=== PATIENT | female | born 1960 | race Hispanic/Latino ===

== ENCOUNTER 2017-09-02 11:31 | Outpatient (CLI) | payer SELFPAY | END 2017-09-02 11:32 | disposition home or self-care (01) | LOC: BICRAD 11:31 | DX: S89.91XA Unspecified injury of right lower leg, initial encounter (principal) ==

== ENCOUNTER 2018-02-19 01:53 | Emergency (ER) | payer SELFPAY ==
[2018-02-19] MEDS ORDERED: Lisinopril 10 MG TAB PO SCH (09:45)
[2018-02-19] MEDS ORDERED: Lisinopril 10 MG TAB ONE (11:16)
== END 2018-02-19 20:25 ==
LOC: ERS 01:53
DX: F32.9 Major depressive disorder, single episode, unspecified (principal); I10 Essential (primary) hypertension; F41.9 Anxiety disorder, unspecified; Z79.899 Other long term (current) drug therapy
CPT/HCPCS: 99285

== ENCOUNTER 2021-03-19 11:23 | Inpatient (IN) | payer SELFPAY ==
[~2021-03-19 11:23] MED LIST: Iopamidol-370 76% 500 ML 1 ML ONE
[2021-03-19] MEDS ORDERED: Sodium Chloride 0.9% 100 ML ONE (12:11)
[2021-03-19] MEDS ORDERED: cefTRIAXone\\ROCEPHIN 2 GM VIAL ONE (12:11)
[2021-03-19] MEDS ORDERED: Azithromycin 500 MG VIAL ONE (12:11)
[2021-03-19] MEDS ORDERED: Lisinopril 10 MG TAB ONE (12:46)
[2021-03-19 15:48] VITALS: BMI 28.1
[2021-03-19] MEDS: Famotidine 20 MG TAB PO SCH (22:20)
[2021-03-19] MEDS: Benzonatate 100 MG CAP PO PRN (22:20)
[2021-03-19] MEDS: guaiFENesin ER 600 MG TAB PO SCH (22:20)
[2021-03-19] MEDS: Enoxaparin Sodium 40 MG/0.4 ML SYRINGE SC SCH (22:20)
[2021-03-19] MEDS: Cholecalciferol 1,000 UNITS (25 MCG) TAB PO SCH (22:20)
[2021-03-20] MEDS: Zinc Sulfate 220 MG CAP PO SCH (07:49)
[2021-03-20] MEDS: Enoxaparin Sodium 40 MG/0.4 ML SYRINGE SC SCH ×2 (07:49→21:52)
[2021-03-20] MEDS: Ascorbic Acid 500 mg Chewable Tablet PO SCH (07:49)
[2021-03-20] MEDS: guaiFENesin ER 600 MG TAB PO SCH ×2 (07:49→21:52)
[2021-03-20] MEDS: Famotidine 20 MG TAB PO SCH (07:50)
[2021-03-20] MEDS: Dexamethasone 4 MG TAB PO SCH (07:50)
[2021-03-20] MEDS ORDERED: Azithromycin 250 MG TAB PO SCH (09:00)
[2021-03-20] MEDS: Ondansetron PF 4 MG/2 ML Vial IVP PRN (09:55)
[2021-03-20] MEDS ORDERED: Loperamide HCl 1 MG/7.5 ML UDCUP PO PRN (10:38)
[2021-03-20 11:17] LABS: ALT (SGPT) 37 U/L (8-55); AST (SGOT) 16 U/L (5-34); Albumin 3.3 g/dL (3.5-5.0); Alkaline Phosphatase 71 U/L (40-110); Anion Gap 15 mmol/L (10-20); BUN (Urea Nitrogen) 27 mg/dL (9.8-20.1); Bilirubin, Total 0.5 mg/dL (0.2-1.2); Calc. Creatinine Clearance 106 mL/min (70-130); Calcium 9.2 mg/dL (7.8-10.44); Carbon Dioxide 22 mmol/L (22-29); Chloride 108 mmol/L (98-107); Glucose 136 mg/dL (70-105); Protein, Total 7.3 g/dL (6.0-8.3); Sodium 141 mmol/L (136-145)
[2021-03-20 11:20] LABS: Hemoglobin 13.9 g/dL (12.0-16.0); Lymphocytes 5 % (21-51); MDiff Complete? YES; Mean Corpuscular HGB CONC 33.8 g/dL (32.0-36.0); Mean Corpuscular Hemoglobin 30.8 pg (27.0-31.0); Mean Platelet Volume 8.3 fL (7.4-10.4); Monocytes 9 % (0-10); Neutrophil 86 % (42-75); Platelet Count 334 thou/uL (130-400); Platelet Morphology Comment Appears Adequate; RBC Distribution Width 11.3 % (11.5-14.5); RBC Morphology Normal; Red Blood Cell (RBC) Count 4.52 mill/uL (4.20-5.40); White Blood Cell (WBC) Count 19.6 thou/uL (4.8-10.8)
[2021-03-20] MEDS: cefTRIAXone\\ROCEPHIN 2 GM in Sodium Chloride 0.9% 100 ML IVPB SCH (13:56)
[2021-03-20] MEDS: Azithromycin 500 MG in Sodium Chloride 0.9% 250 ML 250 ML IVPB SCH (16:07)
[2021-03-20] MEDS: Benzonatate 100 MG CAP PO PRN (21:52)
[2021-03-20] MEDS: Cholecalciferol 1,000 UNITS (25 MCG) TAB PO SCH (21:52)
[2021-03-21] MEDS: Benzonatate 100 MG CAP PO PRN ×4 (02:39→21:24)
[2021-03-21] MEDS: Albuterol 200 PUFF (6.7GM INHALER) INH PRN ×2 (02:39→12:00)
[2021-03-21 06:23] LABS: ALT (SGPT) 29 U/L (8-55); AST (SGOT) 18 U/L (5-34); Albumin 3.1 g/dL (3.5-5.0); Alkaline Phosphatase 67 U/L (40-110); Anion Gap 17 mmol/L (10-20); BUN (Urea Nitrogen) 24 mg/dL (9.8-20.1); Bilirubin, Total 0.5 mg/dL (0.2-1.2); CRP (Inflammatory) 4.15 mg/dL (= or < 0.5); Calc. Creatinine Clearance 106 mL/min (70-130); Carbon Dioxide 18 mmol/L (22-29); Chloride 109 mmol/L (98-107); Globulin 4.1 g/dL (2.4-3.5); Glucose 112 mg/dL (70-105); Potassium 4.9 mmol/L (3.5-5.1); Protein, Total 7.2 g/dL (6.0-8.3); Sodium 139 mmol/L (136-145)
[2021-03-21 07:00] LABS: Band 18 % (5-11); Hemoglobin 15.2 g/dL (12.0-16.0); Lymphocytes 9 % (21-51); MDiff Complete? YES; Mean Corpuscular HGB CONC 34.7 g/dL (32.0-36.0); Mean Corpuscular Volume 92.1 fL (78.0-98.0); Mean Platelet Volume 8.9 fL (7.4-10.4); Monocytes 6 % (0-10); Neutrophil 67 % (42-75); Platelet Count 259 thou/uL (130-400); RBC Distribution Width 11.3 % (11.5-14.5); Red Blood Cell (RBC) Count 4.74 mill/uL (4.20-5.40); White Blood Cell (WBC) Count 15.8 thou/uL (4.8-10.8)
[2021-03-21] MEDS: Dexamethasone 4 MG TAB PO SCH (08:14)
[2021-03-21] MEDS: Ascorbic Acid 500 mg Chewable Tablet PO SCH (08:15)
[2021-03-21] MEDS: Lisinopril 10 MG TAB PO SCH (08:15)
[2021-03-21] MEDS: guaiFENesin ER 600 MG TAB PO SCH ×2 (08:15→21:24)
[2021-03-21] MEDS: Zinc Sulfate 220 MG CAP PO SCH (08:15)
[2021-03-21] MEDS: Enoxaparin Sodium 40 MG/0.4 ML SYRINGE SC SCH ×2 (08:15→21:25)
[2021-03-21] MEDS: Acetaminophen 325 MG TAB PO PRN ×2 (08:19→21:30)
[2021-03-21] MEDS: cefTRIAXone\\ROCEPHIN 2 GM in Sodium Chloride 0.9% 100 ML IVPB SCH (13:11)
[2021-03-21] MEDS: Azithromycin 500 MG in Sodium Chloride 0.9% 250 ML 250 ML IVPB SCH (15:15)
[2021-03-21] MEDS: Cholecalciferol 1,000 UNITS (25 MCG) TAB PO SCH (21:24)
[2021-03-22 06:11] LABS: Hemoglobin 13.2 g/dL (12.0-16.0); Mean Corpuscular HGB CONC 34.1 g/dL (32.0-36.0); Mean Corpuscular Hemoglobin 31.3 pg (27.0-31.0); Mean Corpuscular Volume 91.7 fL (78.0-98.0); Mean Platelet Volume 8.6 fL (7.4-10.4); Platelet Count 340 thou/uL (130-400); RBC Distribution Width 11.2 % (11.5-14.5); Red Blood Cell (RBC) Count 4.22 mill/uL (4.20-5.40); White Blood Cell (WBC) Count 17.6 thou/uL (4.8-10.8)
[2021-03-22 06:30] LABS: ALT (SGPT) 26 U/L (8-55); AST (SGOT) 11 U/L (5-34); Albumin 2.9 g/dL (3.5-5.0); Alkaline Phosphatase 64 U/L (40-110); Anion Gap 12 mmol/L (10-20); BUN (Urea Nitrogen) 26 mg/dL (9.8-20.1); Bilirubin, Total 0.4 mg/dL (0.2-1.2); CRP (Inflammatory) 3.44 mg/dL (= or < 0.5); Calc. Creatinine Clearance 98 mL/min (70-130); Calcium 8.9 mg/dL (7.8-10.44); Carbon Dioxide 26 mmol/L (22-29); Chloride 108 mmol/L (98-107); Globulin 3.7 g/dL (2.4-3.5); Glucose 119 mg/dL (70-105); Potassium 4.2 mmol/L (3.5-5.1); Protein, Total 6.6 g/dL (6.0-8.3); Sodium 142 mmol/L (136-145)
[2021-03-22 06:56] LABS: Band 2 % (5-11); Lymphocytes 14 % (21-51); MDiff Complete? YES; Monocytes 8 % (0-10); Neutrophil 76 % (42-75)
[2021-03-22] MEDS: Enoxaparin Sodium 40 MG/0.4 ML SYRINGE SC SCH ×2 (07:38→20:46)
[2021-03-22] MEDS: Dexamethasone 4 MG TAB PO SCH (07:38)
[2021-03-22] MEDS: Acetaminophen 325 MG TAB PO PRN (07:40)
[2021-03-22] MEDS: guaiFENesin ER 600 MG TAB PO SCH ×2 (07:40→20:46)
[2021-03-22] MEDS: Ascorbic Acid 500 mg Chewable Tablet PO SCH (07:40)
[2021-03-22] MEDS: Benzonatate 100 MG CAP PO PRN ×3 (07:40→20:47)
[2021-03-22] MEDS: Lisinopril 10 MG TAB PO SCH (07:41)
[2021-03-22] MEDS: Zinc Sulfate 220 MG CAP PO SCH (07:41)
[2021-03-22] MEDS: Albuterol 200 PUFF (6.7GM INHALER) INH PRN ×2 (15:07→21:07)
[2021-03-22] MEDS: ALPRAZolam 0.25 MG TAB PO PRN ×2 (15:08→21:06)
[2021-03-22] MEDS: Cholecalciferol 1,000 UNITS (25 MCG) TAB PO SCH (20:46)
[2021-03-23] MEDS: Acetaminophen 325 MG TAB PO PRN ×3 (00:09→20:44)
[2021-03-23 06:36] LABS: Hemoglobin 13.3 g/dL (12.0-16.0); Mean Corpuscular HGB CONC 33.4 g/dL (32.0-36.0); Mean Corpuscular Hemoglobin 30.6 pg (27.0-31.0); Mean Corpuscular Volume 91.4 fL (78.0-98.0); Mean Platelet Volume 8.4 fL (7.4-10.4); Platelet Count 400 thou/uL (130-400); RBC Distribution Width 11.1 % (11.5-14.5); Red Blood Cell (RBC) Count 4.35 mill/uL (4.20-5.40); White Blood Cell (WBC) Count 16.6 thou/uL (4.8-10.8)
[2021-03-23 06:37] LABS: Band 1 % (5-11); Lymphocytes 17 % (21-51); MDiff Complete? YES; Metamyelocyte 1 % (0-0); Monocytes 5 % (0-10); Neutrophil 76 % (42-75); Platelet Morphology Comment Appears Adequate; RBC Morphology Normal
[2021-03-23 06:50] LABS: ALT (SGPT) 19 U/L (8-55); AST (SGOT) 8 U/L (5-34); Albumin 2.9 g/dL (3.5-5.0); Alkaline Phosphatase 64 U/L (40-110); Anion Gap 15 mmol/L (10-20); BUN (Urea Nitrogen) 28 mg/dL (9.8-20.1); Bilirubin, Total 0.4 mg/dL (0.2-1.2); CRP (Inflammatory) 2.73 mg/dL (= or < 0.5); Calc. Creatinine Clearance 96 mL/min (70-130); Calcium 8.9 mg/dL (7.8-10.44); Carbon Dioxide 21 mmol/L (22-29); Chloride 106 mmol/L (98-107); Globulin 3.6 g/dL (2.4-3.5); Glucose 127 mg/dL (70-105); Potassium 4.1 mmol/L (3.5-5.1); Protein, Total 6.5 g/dL (6.0-8.3); Sodium 138 mmol/L (136-145)
[2021-03-23] MEDS: Ascorbic Acid 500 mg Chewable Tablet PO SCH (08:31)
[2021-03-23] MEDS: Lisinopril 10 MG TAB PO SCH (08:31)
[2021-03-23] MEDS: Benzonatate 100 MG CAP PO PRN ×3 (08:31→20:43)
[2021-03-23] MEDS: Dexamethasone 4 MG TAB PO SCH (08:31)
[2021-03-23] MEDS: guaiFENesin ER 600 MG TAB PO SCH ×2 (08:31→20:43)
[2021-03-23] MEDS: Enoxaparin Sodium 40 MG/0.4 ML SYRINGE SC SCH ×2 (08:32→20:43)
[2021-03-23] MEDS: Zinc Sulfate 220 MG CAP PO SCH (08:32)
[2021-03-23] MEDS: Albuterol 200 PUFF (6.7GM INHALER) INH PRN ×2 (12:57→20:45)
[2021-03-23] MEDS: Cholecalciferol 1,000 UNITS (25 MCG) TAB PO SCH (20:43)
[2021-03-23] MEDS: ALPRAZolam 0.25 MG TAB PO PRN (23:31)
[2021-03-24] MEDS: Benzonatate 100 MG CAP PO PRN ×4 (05:13→21:11)
[2021-03-24] MEDS: Albuterol 200 PUFF (6.7GM INHALER) INH PRN ×2 (06:05→21:11)
[2021-03-24] MEDS: Enoxaparin Sodium 40 MG/0.4 ML SYRINGE SC SCH ×2 (08:19→21:05)
[2021-03-24] MEDS: Dexamethasone 4 MG TAB PO SCH (08:20)
[2021-03-24] MEDS: Zinc Sulfate 220 MG CAP PO SCH (08:20)
[2021-03-24] MEDS: guaiFENesin ER 600 MG TAB PO SCH ×2 (08:20→21:05)
[2021-03-24] MEDS: Lisinopril 10 MG TAB PO SCH (08:20)
[2021-03-24] MEDS: ALPRAZolam 0.25 MG TAB PO PRN ×3 (08:20→21:23)
[2021-03-24] MEDS: Ascorbic Acid 500 mg Chewable Tablet PO SCH (08:20)
[2021-03-24] MEDS: Cholecalciferol 1,000 UNITS (25 MCG) TAB PO SCH (21:05)
[2021-03-24] MEDS: Senokot S 8.6-50 MG TAB PO PRN (21:06)
[2021-03-24] MEDS: Acetaminophen 325 MG TAB PO PRN (21:23)
[2021-03-25] MEDS: Benzonatate 100 MG CAP PO PRN ×4 (04:50→21:30)
[2021-03-25] MEDS: Albuterol 200 PUFF (6.7GM INHALER) INH PRN ×2 (04:50→21:53)
[2021-03-25 06:36] LABS: Anion Gap 16 mmol/L (10-20); BUN (Urea Nitrogen) 26 mg/dL (9.8-20.1); CRP (Inflammatory) 0.85 mg/dL (= or < 0.5); Calc. Creatinine Clearance 97 mL/min (70-130); Calcium 8.7 mg/dL (7.8-10.44); Carbon Dioxide 21 mmol/L (22-29); Chloride 107 mmol/L (98-107); Glucose 141 mg/dL (70-105); Potassium 4.6 mmol/L (3.5-5.1); Sodium 139 mmol/L (136-145)
[2021-03-25 06:53] LABS: Band 1 % (5-11); Hemoglobin 13.4 g/dL (12.0-16.0); Lymphocytes 9 % (21-51); MDiff Complete? YES; Mean Corpuscular HGB CONC 35.1 g/dL (32.0-36.0); Mean Corpuscular Hemoglobin 32.1 pg (27.0-31.0); Mean Corpuscular Volume 91.6 fL (78.0-98.0); Mean Platelet Volume 8.6 fL (7.4-10.4); Monocytes 6 % (0-10); Myelocyte 1 % (0-0); Neutrophil 81 % (42-75); Platelet Count 372 thou/uL (130-400); Platelet Morphology Comment Appears Adequate; RBC Distribution Width 11.4 % (11.5-14.5); RBC Morphology Normal; Reactive Lymphocytes 2 % (0-10); Red Blood Cell (RBC) Count 4.18 mill/uL (4.20-5.40); White Blood Cell (WBC) Count 19.5 thou/uL (4.8-10.8)
[2021-03-25] MEDS: Enoxaparin Sodium 40 MG/0.4 ML SYRINGE SC SCH ×2 (07:39→21:29)
[2021-03-25] MEDS: Dexamethasone 4 MG TAB PO SCH (07:39)
[2021-03-25] MEDS: Ascorbic Acid 500 mg Chewable Tablet PO SCH (07:40)
[2021-03-25] MEDS: Lisinopril 10 MG TAB PO SCH (07:40)
[2021-03-25] MEDS: ALPRAZolam 0.25 MG TAB PO PRN ×3 (07:40→21:40)
[2021-03-25] MEDS: Zinc Sulfate 220 MG CAP PO SCH (07:40)
[2021-03-25] MEDS: guaiFENesin ER 600 MG TAB PO SCH ×2 (07:40→21:30)
[2021-03-25] MEDS: Ondansetron PF 4 MG/2 ML Vial IVP PRN (10:10)
[2021-03-25] MEDS: Senokot S 8.6-50 MG TAB PO PRN (21:29)
[2021-03-25] MEDS: Cholecalciferol 1,000 UNITS (25 MCG) TAB PO SCH (21:30)
[2021-03-25] MEDS: Acetaminophen 325 MG TAB PO PRN (21:30)
[2021-03-26] MEDS: Senokot S 8.6-50 MG TAB PO PRN (05:35)
[2021-03-26] MEDS: Benzonatate 100 MG CAP PO PRN (05:35)
[2021-03-26 06:30] LABS: #Eosinphils 0.1 thou/uL (0.0-0.7); #Lymphocytes 2.3 thou/uL (1.20-3.40); #Monocytes 1.2 thou/uL (0.11-0.59); #Neutrophils 16.2 thou/uL (1.40-6.50); %Basophils 0.2 % (0.0-1.0); %Eosinophils 0.4 % (0.0-10.0); %Lymphocytes 11.4 % (21.0-51.0); %Monocytes 6.2 % (0.0-10.0); %Neutrophils 81.9 % (42.0-75.0); Hemoglobin 13.3 g/dL (12.0-16.0); Mean Corpuscular HGB CONC 34.2 g/dL (32.0-36.0); Mean Corpuscular Hemoglobin 31.4 pg (27.0-31.0); Mean Corpuscular Volume 91.6 fL (78.0-98.0); Mean Platelet Volume 8.7 fL (7.4-10.4); Platelet Count 378 thou/uL (130-400); RBC Distribution Width 11.5 % (11.5-14.5); Red Blood Cell (RBC) Count 4.24 mill/uL (4.20-5.40); White Blood Cell (WBC) Count 19.8 thou/uL (4.8-10.8)
[2021-03-26 06:55] LABS: Anion Gap 12 mmol/L (10-20); BUN (Urea Nitrogen) 23 mg/dL (9.8-20.1); Calc. Creatinine Clearance 111 mL/min (70-130); Calcium 8.6 mg/dL (7.8-10.44); Carbon Dioxide 22 mmol/L (22-29); Chloride 106 mmol/L (98-107); Glucose 110 mg/dL (70-105); Potassium 4.3 mmol/L (3.5-5.1); Sodium 136 mmol/L (136-145)
[2021-03-26] MEDS: Dexamethasone 4 MG TAB PO SCH (08:41)
[2021-03-26] MEDS: guaiFENesin ER 600 MG TAB PO SCH ×2 (08:41→20:12)
[2021-03-26] MEDS: Zinc Sulfate 220 MG CAP PO SCH (08:41)
[2021-03-26] MEDS: Ascorbic Acid 500 mg Chewable Tablet PO SCH (08:42)
[2021-03-26] MEDS: Lisinopril 10 MG TAB PO SCH (08:42)
[2021-03-26] MEDS: Enoxaparin Sodium 40 MG/0.4 ML SYRINGE SC SCH ×2 (08:43→20:12)
[2021-03-26] MEDS: Cholecalciferol 1,000 UNITS (25 MCG) TAB PO SCH (20:12)
[2021-03-27] MEDS: Enoxaparin Sodium 40 MG/0.4 ML SYRINGE SC SCH ×2 (08:12→20:08)
[2021-03-27] MEDS: Dexamethasone 4 MG TAB PO SCH (08:13)
[2021-03-27] MEDS: Zinc Sulfate 220 MG CAP PO SCH (08:13)
[2021-03-27] MEDS: Lisinopril 10 MG TAB PO SCH (08:13)
[2021-03-27] MEDS: Ascorbic Acid 500 mg Chewable Tablet PO SCH (08:13)
[2021-03-27] MEDS: guaiFENesin ER 600 MG TAB PO SCH ×2 (08:19→20:07)
[2021-03-27] MEDS: Benzonatate 100 MG CAP PO PRN ×2 (11:32→20:07)
[2021-03-27] MEDS: Albuterol 200 PUFF (6.7GM INHALER) INH PRN (20:07)
[2021-03-27] MEDS: Cholecalciferol 1,000 UNITS (25 MCG) TAB PO SCH (20:07)
[2021-03-28] MEDS: Albuterol 200 PUFF (6.7GM INHALER) INH PRN (00:37)
[2021-03-28] MEDS: ALPRAZolam 0.25 MG TAB PO PRN (00:37)
[2021-03-28] MEDS: Benzonatate 100 MG CAP PO PRN (00:37)
[2021-03-28] MEDS: guaiFENesin ER 600 MG TAB PO SCH ×2 (08:07→21:36)
[2021-03-28] MEDS: Lisinopril 10 MG TAB PO SCH (08:07)
[2021-03-28] MEDS: Dexamethasone 4 MG TAB PO SCH (08:08)
[2021-03-28] MEDS: Enoxaparin Sodium 40 MG/0.4 ML SYRINGE SC SCH ×2 (08:08→21:36)
[2021-03-28] MEDS: Zinc Sulfate 220 MG CAP PO SCH (08:26)
[2021-03-28] MEDS: Ascorbic Acid 500 mg Chewable Tablet PO SCH (08:27)
[2021-03-28] MEDS: Cholecalciferol 1,000 UNITS (25 MCG) TAB PO SCH (21:36)
[2021-03-29 07:10] LABS: #Eosinphils 0.1 thou/uL (0.0-0.7); #Lymphocytes 2.4 thou/uL (1.20-3.40); #Monocytes 1.6 thou/uL (0.11-0.59); #Neutrophils 15.3 thou/uL (1.40-6.50); %Eosinophils 0.5 % (0.0-10.0); %Lymphocytes 12.4 % (21.0-51.0); %Monocytes 8.4 % (0.0-10.0); %Neutrophils 78.6 % (42.0-75.0); Hemoglobin 14.5 g/dL (12.0-16.0); Mean Corpuscular HGB CONC 33.8 g/dL (32.0-36.0); Mean Corpuscular Hemoglobin 31.2 pg (27.0-31.0); Mean Corpuscular Volume 92.4 fL (78.0-98.0); Platelet Count 278 thou/uL (130-400); Red Blood Cell (RBC) Count 4.65 mill/uL (4.20-5.40); White Blood Cell (WBC) Count 19.4 thou/uL (4.8-10.8)
[2021-03-29 07:38] LABS: Band 1 % (5-11); Lymphocytes 18 % (21-51); Metamyelocyte 1 % (0-0); Monocytes 5 % (0-10)
[2021-03-29 07:39] LABS: Hypersemented Neutrophil SLIGHT; Platelet Morphology Comment Appears Adequate; Polychromasia SLIGHT = 2-3 cells (100X) (0-2/hpf); Vacuoles SLIGHT
[2021-03-29 07:40] LABS: Neutrophil 75 % (42-75)
[2021-03-29 07:47] LABS: Anion Gap 15 mmol/L (10-20); BUN (Urea Nitrogen) 27 mg/dL (9.8-20.1); Calc. Creatinine Clearance 107 mL/min (70-130); Carbon Dioxide 22 mmol/L (22-29); Chloride 106 mmol/L (98-107); Glucose 110 mg/dL (70-105); Potassium 4.3 mmol/L (3.5-5.1); Sodium 139 mmol/L (136-145)
[2021-03-29] MEDS: guaiFENesin ER 600 MG TAB PO SCH ×2 (08:39→20:06)
[2021-03-29] MEDS: Dexamethasone 4 MG TAB PO SCH (08:39)
[2021-03-29] MEDS: Ascorbic Acid 500 mg Chewable Tablet PO SCH (08:40)
[2021-03-29] MEDS: Zinc Sulfate 220 MG CAP PO SCH (08:40)
[2021-03-29] MEDS: Lisinopril 10 MG TAB PO SCH (08:40)
[2021-03-29] MEDS: Enoxaparin Sodium 40 MG/0.4 ML SYRINGE SC SCH ×2 (08:40→20:06)
[2021-03-29] MEDS: Benzonatate 100 MG CAP PO PRN (08:40)
[2021-03-29] MEDS: Cholecalciferol 1,000 UNITS (25 MCG) TAB PO SCH (20:06)
[2021-03-30] MEDS: Dexamethasone 4 MG TAB PO SCH (08:23)
[2021-03-30] MEDS: Benzonatate 100 MG CAP PO PRN (08:23)
[2021-03-30] MEDS: guaiFENesin ER 600 MG TAB PO SCH ×2 (08:23→21:12)
[2021-03-30] MEDS: Enoxaparin Sodium 40 MG/0.4 ML SYRINGE SC SCH ×2 (08:24→21:12)
[2021-03-30] MEDS: Ascorbic Acid 500 mg Chewable Tablet PO SCH (08:24)
[2021-03-30] MEDS: Lisinopril 10 MG TAB PO SCH ×2 (08:24→09:45)
[2021-03-30] MEDS: Zinc Sulfate 220 MG CAP PO SCH (08:24)
[2021-03-30] MEDS: ALPRAZolam 0.25 MG TAB PO PRN (21:12)
[2021-03-30] MEDS: Cholecalciferol 1,000 UNITS (25 MCG) TAB PO SCH (21:12)
[2021-03-31] MEDS: Enoxaparin Sodium 40 MG/0.4 ML SYRINGE SC SCH ×2 (08:01→20:35)
[2021-03-31] MEDS: Lisinopril 10 MG TAB PO SCH (08:01)
[2021-03-31] MEDS: guaiFENesin ER 600 MG TAB PO SCH ×2 (08:01→20:34)
[2021-03-31] MEDS: Ascorbic Acid 500 mg Chewable Tablet PO SCH (08:01)
[2021-03-31] MEDS: Dexamethasone 4 MG TAB PO SCH (08:01)
[2021-03-31] MEDS: Zinc Sulfate 220 MG CAP PO SCH (08:01)
[2021-03-31] MEDS: Cholecalciferol 1,000 UNITS (25 MCG) TAB PO SCH (20:34)
[2021-03-31] MEDS: ALPRAZolam 0.25 MG TAB PO PRN (20:35)
[2021-04-01 07:37] LABS: Hemoglobin 13.5 g/dL (12.0-16.0); Mean Corpuscular HGB CONC 33.1 g/dL (32.0-36.0); Mean Corpuscular Hemoglobin 30.4 pg (27.0-31.0); Platelet Count 294 thou/uL (130-400); RBC Distribution Width 12.2 % (11.5-14.5); Red Blood Cell (RBC) Count 4.44 mill/uL (4.20-5.40)
[2021-04-01 07:42] LABS: Anion Gap 16 mmol/L (10-20); BUN (Urea Nitrogen) 22 mg/dL (9.8-20.1); Calc. Creatinine Clearance 111 mL/min (70-130); Calcium 8.7 mg/dL (7.8-10.44); Carbon Dioxide 22 mmol/L (22-29); Chloride 101 mmol/L (98-107); Glucose 146 mg/dL (70-105); Potassium 4.1 mmol/L (3.5-5.1); Sodium 135 mmol/L (136-145)
[2021-04-01] MEDS: Enoxaparin Sodium 40 MG/0.4 ML SYRINGE SC SCH ×2 (08:04→20:27)
[2021-04-01] MEDS: Lisinopril 10 MG TAB PO SCH (08:04)
[2021-04-01] MEDS: Zinc Sulfate 220 MG CAP PO SCH (08:04)
[2021-04-01] MEDS: Dexamethasone 4 MG TAB PO SCH (08:04)
[2021-04-01] MEDS: guaiFENesin ER 600 MG TAB PO SCH ×2 (08:05→20:27)
[2021-04-01] MEDS: Ascorbic Acid 500 mg Chewable Tablet PO SCH (08:05)
[2021-04-01 09:54] LABS: Band 7 % (5-11); Lymphocytes 12 % (21-51); MDiff Complete? YES; Mean Platelet Volume 9.2 fL (7.4-10.4); Metamyelocyte 3 % (0-0); Monocytes 9 % (0-10); Neutrophil 66 % (42-75); Reactive Lymphocytes 3 % (0-10); White Blood Cell (WBC) Count 20.2 thou/uL (4.8-10.8)
[2021-04-01] MEDS: Cholecalciferol 1,000 UNITS (25 MCG) TAB PO SCH (20:27)
[2021-04-02 07:23] VITALS: TEMP 97.9
[2021-04-02] MEDS: Lisinopril 10 MG TAB PO SCH (08:22)
[2021-04-02] MEDS: guaiFENesin ER 600 MG TAB PO SCH (08:22)
[2021-04-02] MEDS: Zinc Sulfate 220 MG CAP PO SCH (08:22)
[2021-04-02] MEDS: Dexamethasone 4 MG TAB PO SCH (08:22)
[2021-04-02] MEDS: Ascorbic Acid 500 mg Chewable Tablet PO SCH (08:22)
[2021-04-02] MEDS: Enoxaparin Sodium 40 MG/0.4 ML SYRINGE SC SCH (08:23)
[2021-04-02 10:55] VITALS: BP 154/96
== END 2021-04-02 16:52 | disposition home or self-care (01) | DRG 871 ==
LOC: ERS 11:23 → T4-A 12:43
PROVIDERS: ADMIT Internal Medicine; ATTEND Family Medicine
PROC: 5A0955A Assistance with Respiratory Ventilation, Greater than 96 Consecutive Hours, High Flow/Velocity Cannula (ICD-10-PCS; principal; 2021-03-19)
PROC: 8E0ZXY6 Isolation (ICD-10-PCS; 2021-03-19)
DX: A41.89 Other specified sepsis (principal); U07.1 COVID-19; J12.82 Pneumonia due to coronavirus disease 2019; J96.01 Acute respiratory failure with hypoxia; F33.9 Major depressive disorder, recurrent, unspecified; A09 Infectious gastroenteritis and colitis, unspecified; R65.20 Severe sepsis without septic shock; I25.10 Atherosclerotic heart disease of native coronary artery without angina pectoris; I10 Essential (primary) hypertension; F41.9 Anxiety disorder, unspecified; F14.11 Cocaine abuse, in remission; F15.11 Other stimulant abuse, in remission; Z90.710 Acquired absence of both cervix and uterus; Z82.49 Family history of ischemic heart disease and other diseases of the circulatory system; Z83.3 Family history of diabetes mellitus; Z86.19 Personal history of other infectious and parasitic diseases
CPT/HCPCS: 36415; 36416; 71275; 80048; 80053; 82728; 84145; 85025; 85379; 86140; 96365; J0456; J0696; J1650; J2405; J3490; J7050; J8540; Q9967